=== PATIENT | female | born 1990 ===

== ENCOUNTER 2023-03-17 07:30 | Inpatient (IN) | payer BC ==
[2023-03-17] MEDS ORDERED: Sodium Chloride 0.9% 20 ML SDV IV PRN (07:36)
[2023-03-17] MEDS ORDERED: Misoprostol 200 MCG Tab PO PRN (07:36)
[2023-03-17] MEDS ORDERED: Sodium Chloride 0.9% 2.5 ML Syringe FLUSH PRN (07:36)
[2023-03-17] MEDS ORDERED: Carboprost Tromethamine 250 MCG/1 mL Vial IM PRN (07:36)
[2023-03-17] MEDS ORDERED: Methylergonovine 0.2 MG/1 ML Amp IM PRN (07:36)
[2023-03-17] MEDS ORDERED: Lidocaine 1% 50 ML MDV INJECT PRN (07:36)
[2023-03-17] MEDS ORDERED: Sodium Chloride 0.9% 10 ML Syringe FLUSH PRN (07:36)
[2023-03-17] MEDS ORDERED: Butorphanol 1 MG/ML SDV IVPUSH PRN (07:36)
[2023-03-17] MEDS ORDERED: Water For Irrigation,Sterile 1,000 ML Container IRR PRN (07:36)
[2023-03-17] MEDS ORDERED: Tranexamic Acid 1,000 MG in Sodium Chloride 0.9% 100 ML IV PRN (07:36)
[2023-03-17] MEDS ORDERED: Oxytocin/0.9 % Sodium Chloride 30 UNIT/500 ML BAG ONE (07:40)
[2023-03-17] MEDS ORDERED: Oxytocin/0.9 % Sodium Chloride 30 UNIT/500 ML BAG IV SCH (07:45)
[2023-03-17] MEDS ORDERED: Lactated Ringers 1,000 ML IV SCH (07:45)
[2023-03-17] MEDS ORDERED: Benzocaine/Menthol 20%-0.5% Spray 78 GM Cannister TOP PRN (08:12)
[2023-03-17] MEDS ORDERED: Ibuprofen 400 MG Tab PO PRN (08:12)
[2023-03-17] MEDS ORDERED: Bisacodyl 10 MG Supp RECTAL PRN (08:12)
[2023-03-17] MEDS ORDERED: Witch Hazel Medicated Pads 40/Jar TOP PRN (08:12)
[2023-03-17] MEDS ORDERED: Acetaminophen 500 MG Tab PO PRN (08:12)
[2023-03-17] MEDS ORDERED: Docusate Sodium 100 MG Cap PO PRN (08:12)
[2023-03-17] MEDS ORDERED: Lanolin 100% Cream 7 GM Tube TOP PRN (08:12)
[2023-03-17] MEDS ORDERED: oxyCODONE 5 MG Tab PO PRN (08:12)
[2023-03-17] MEDS ORDERED: Ibuprofen 800 MG Tab PO PRN (08:12)
[2023-03-17 08:38] LABS: HEMATOCRIT 42.5 % (36.0-46.0); HEMOGLOBIN 14.2 g/dL (12.0-16.0); MEAN CORPUSCULAR HEMOGLOBIN 26.6 pg (27.0-32.0); MEAN CORPUSCULAR HGB CONC 33.4 g/dL (31.0-37.0); MEAN CORPUSCULAR VOLUME 79.6 fL (80.0-98.0); MEAN PLATELET VOLUME 11.9 fL (7.40-12.00); RED BLOOD CELL COUNT 5.34 M/uL (4.30-5.90); WHITE BLOOD CELL COUNT,WBC 8.15 K/uL (4.0-11.0)
[2023-03-17] MEDS: Acetaminophen 500 MG Tab PO PRN ×2 (10:01→21:42)
[2023-03-18 06:06] LABS: HEMATOCRIT 37.4 % (36.0-46.0); HEMOGLOBIN 12.5 g/dL (12.0-16.0)
== END 2023-03-18 15:00 | disposition home or self-care (01) | DRG 560 ==
LOC: MW.OBCHECK 07:30 → MW.OB 07:32 → MW.OBCHECK 07:36 → OBSVTOIN 07:59 → MW.OB 12:50
PROVIDERS: ADMIT Obstetrics & Gynecology; ATTEND Obstetrics & Gynecology
PROC: 10E0XZZ Delivery of Products of Conception, External Approach (ICD-10-PCS; principal; 2023-03-17)
DX: O80 Encounter for full-term uncomplicated delivery (principal); Z37.0 Single live birth; Z3A.39 39 weeks gestation of pregnancy
CPT/HCPCS: 36415; 59025; 59409; 85014; 85018; 85027; 86592; 86850; 86900; 86901; A9270-GY; J2590; J7120